=== PATIENT | male | born 1945 ===

== ENCOUNTER 2022-09-20 19:29 | Observation (INO) | payer MEDICARE, OTHER ==
[~2022-09-20] VITALS: Ht 180.3 cm; Wt 65.9 kg
[2022-09-20 20:06] LABS: BASOPHILS PERCENT AUTO 1 % (0-2); EOSINOPHILS ABSOLUTE AUTO 0.13 K/mm3 (0.00-0.68); EOSINOPHILS PERCENT AUTO 1 % (0-6); Hemoglobin 15.3 g/dL (13.5-17.5); IMMATURE GRAN ABSOLUTE AUTO 0.06 K/mm3 (0.00-0.10); IMMATURE GRAN PERCENT AUTO 1 % (0-1); LYMPHOCYTES ABSOLUTE AUTO 1.44 K/mm3 (0.84-5.20); LYMPHOCYTES PERCENT AUTO 12 % (21-46); MONOCYTES ABSOLUTE AUTO 0.45 K/mm3 (0.16-1.47); MONOCYTES PERCENT AUTO 4 % (4-13); Mean Corpuscular HGB 29.1 pg (26.0-34.0); Mean Corpuscular HGB Conc 33.3 g/dL (31.5-36.5); Mean Corpuscular Volume 88 fL (80-100); Mean Platelet Volume 10.3 fL (9.1-12.4); NEUTROPHILS PERCENT AUTO 83 % (41-73); Platelet Count 348 K/mm3 (150-400); RDW Standard Deviation 41.6 fL (35.1-46.3); Red Blood Cell Count 5.26 M/mm3 (4.30-5.90); White Blood Cell Count 12.48 K/mm3 (4.00-11.30)
[2022-09-20 20:29] LABS: Albumin, Blood 3.2 g/dL (3.4-5.0); Albumin/Globulin Ratio 0.7 (0.8-1.8); Bilirubin, Total 0.6 mg/dL (0.1-1.0); Bun/Creatinine Ratio 16.7 (12.0-20.0); Calcium, Blood 9.5 mg/dL (8.5-10.1); Creatinine, Blood 0.78 mg/dL (0.60-1.20); Globulin, Blood 4.5 g/dL (2.2-4.0); Potassium, Blood 3.9 mmol/L (3.5-5.5); Total Protein, Blood 7.7 g/dL (6.4-8.2)
[2022-09-20 21:15] LABS: International Normalized Ratio 1.11; Prothrombin Time Results 11.6 Sec (9.7-11.5)
[2022-09-20 22:55] VITALS: BP 145/84
[2022-09-20 23:00] VITALS: BP 142/85
[2022-09-20 23:05] VITALS: BP 133/74
[2022-09-20 23:10] VITALS: BP 125/63
[2022-09-20 23:20] VITALS: BP 144/85
[2022-09-20 23:38] VITALS: BP 140/90
[2022-09-21 00:08] VITALS: BP 133/89
[2022-09-21 00:44] VITALS: BP 123/78
--- NOTE | 2022-09-21 01:44 | NUR ---
PT ARRIVED TO THE FLOOR AT APPROX 0010, A/O TO SELF ONLY AT THIS TIME. INCISION TO L GROIN W/ DERMABOND. SKIN ON BILATERAL LEGS MOTTLED BUT WARM. FULL SENSATION. BOWEL TONES ACTIVE. VITAL SIGNS TAKE. PT UP AND WALKED TO THE BATHROOM W/ ONE ASSIST AND GB. VOIDED AT THIS TIME.
[2022-09-21 01:48] VITALS: BP 137/88
[2022-09-21 02:57] VITALS: BP 110/79
--- NOTE | 2022-09-21 05:21 | NUR ---
SHIFT SUMMARY SINCE ARRIVAL PT HAS BECOME ORIENTED X4. NO PAIN REPORTED. 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 VOIDING WELL.
[2022-09-21 07:45] VITALS: BP 125/91
[2022-09-21] MEDS ORDERED: Norco 5-325 Ta1 EACH PO (10:31)
--- NOTE | 2022-09-21 11:03 | NUR ---
DISCHARGE: PACKET PRINTED AND PT EDUCATED. IV DC'D WNL. PER DR. CENTENO,E-SCRIPT SENT TO PHARMACY. PT LEFT UNIT VIA WHEELCHAIR AT 1115
== END 2022-09-21 11:47 | disposition home or self-care (01) ==
LOC: ER 19:29 → SURS 20:31
PROVIDERS: Emergency Medicine; ADMIT Surgery
PROC: 0YU60JZ Supplement Left Inguinal Region with Synthetic Substitute, Open Approach (ICD-10-PCS; principal; 2022-09-20 20:30)
DX: K40.30 Unilateral inguinal hernia, with obstruction, without gangrene, not specified as recurrent (principal); Z72.0 Tobacco use
CPT/HCPCS: 74176; 80053; 85025; 85610; 85730; 93005; 93010; 94762; 96374; 96375; 99285-25; A9270; C1781; J0690; J1100; J1170; J2370; J2405; J2704; J3010; J7120

== ENCOUNTER 2024-03-13 10:53 | Day surgery (SDC) | payer MEDICARE ==
[~2024-03-13] VITALS: Ht 180.3 cm; Wt 68.7 kg
[~2024-03-13 10:53] MED LIST: Balanced Salt Epinephrine Irrigation Solution 500 mL IR SCH; Lidocaine HCl/Pf 1% 5 ML VIAL XX SCH; Moxifloxacin HCL 0.5 MG/0.1 ML 0.4MLSYR LEFTEYE SCH; Norco 5-325 Ta1 EACH PO; PHENYLEPHRINE\\TROPICAMIDE\\TETRACAINE OPHTHALMIC DILATING SOLN LEFTEYE PRN; Povidone-Iodine 450 DROP/30 ML Solution LEFTEYE SCH; Povidone-Iodine 450 DROP/30 ML Solution ONE; Tetracaine HCl/Pf 0.5% Opth Soln 4 ml ONE
[2024-03-13] MEDS ORDERED: LOSARTAN POTASS25 M2 (12:05)
[2024-03-13] MEDS ORDERED: Midazolam HCl 1MG / ML 2ML Vial ONE (12:24)
[2024-03-13 12:59] VITALS: BP 138/75
== END 2024-03-13 13:17 | disposition home or self-care (01) ==
LOC: ORSCSDS 10:53
PROVIDERS: Student in an Organized Health Care Education/Training Program
PROC: 08RK3JZ Replacement of Left Lens with Synthetic Substitute, Percutaneous Approach (ICD-10-PCS; principal; 2024-03-13 12:30)
DX: H25.812 Combined forms of age-related cataract, left eye (principal); I10 Essential (primary) hypertension; Z86.73 Personal history of transient ischemic attack (TIA), and cerebral infarction without residual deficits; Z79.899 Other long term (current) drug therapy; Z87.891 Personal history of nicotine dependence
CPT/HCPCS: J2250; V2632

== ENCOUNTER 2024-12-12 19:12 | Emergency (ER) | payer MEDICARE ==
[~2024-12-12] VITALS: Ht 180.3 cm; Wt 68.0 kg
[~2024-12-12 19:12] MED LIST changes: -Balanced Salt Epinephrine Irrigation Solution 500 mL IR SCH; +LOSARTAN POTASS25 M2; -Lidocaine HCl/Pf 1% 5 ML VIAL XX SCH; -Moxifloxacin HCL 0.5 MG/0.1 ML 0.4MLSYR LEFTEYE SCH; -PHENYLEPHRINE\\TROPICAMIDE\\TETRACAINE OPHTHALMIC DILATING SOLN LEFTEYE PRN; -Povidone-Iodine 450 DROP/30 ML Solution LEFTEYE SCH; -Povidone-Iodine 450 DROP/30 ML Solution ONE; -Tetracaine HCl/Pf 0.5% Opth Soln 4 ml ONE
[2024-12-12 19:46] LABS: BASOPHILS ABSOLUTE AUTO 0.04 K/mm3 (0.00-0.23); BASOPHILS PERCENT AUTO 1 % (0-2); EOSINOPHILS ABSOLUTE AUTO 0.01 K/mm3 (0.00-0.68); EOSINOPHILS PERCENT AUTO 0 % (0-6); Hematocrit 41.7 % (37.0-53.0); Hemoglobin 14.1 g/dL (13.5-17.5); IMMATURE GRAN ABSOLUTE AUTO 0.02 K/mm3 (0.00-0.10); IMMATURE GRAN PERCENT AUTO 0 % (0-1); LYMPHOCYTES ABSOLUTE AUTO 0.50 K/mm3 (0.84-5.20); LYMPHOCYTES PERCENT AUTO 7 % (21-46); MONOCYTES ABSOLUTE AUTO 0.41 K/mm3 (0.16-1.47); MONOCYTES PERCENT AUTO 6 % (4-13); Mean Corpuscular HGB Conc 33.8 g/dL (31.5-36.5); Mean Corpuscular Volume 94 fL (80-100); NEUTROPHILS ABSOLUTE AUTO 6.49 K/mm3 (1.96-9.15); NEUTROPHILS PERCENT AUTO 87 % (41-73); NRBC ABSOLUTE 0.00 K/mm3 (0.00-0.02); NRBC Auto 0.0 /100 WBC (0.0-0.2); Platelet Count 179 K/mm3 (150-400); RDW Coefficient Variation 12.5 % (11.7-14.2); RDW Standard Deviation 43.4 fL (35.1-46.3)
[2024-12-12 20:15] LABS: Alanine Aminotransfer (ALT/SGP 25.0 U/L (12-78); Albumin, Blood 4.2 g/dL (3.4-5.0); Albumin/Globulin Ratio 1.1 (0.8-1.8); Anion Gap 10.0 mmol/L (3-11); Aspartate Aminotrans (AST/SGOT 18.0 U/L (12-37); Bilirubin, Total 1.0 mg/dL (0.1-1.0); Blood Urea Nitrogen 11.0 mg/dL (8-24); CO2, Blood 24.0 mmol/L (21-32); Calcium, Blood 9.7 mg/dL (8.5-10.1); Chloride, Blood 105.0 mmol/L (98-108); Creatinine, Blood 0.84 mg/dL (0.60-1.20); Globulin, Blood 3.7 g/dL (2.2-4.0); Glucose, Blood 94.0 mg/dL (70-99); Potassium, Blood 3.7 mmol/L (3.5-5.5); Sodium, Blood 135.0 mmol/L (136-145); Total Protein, Blood 7.9 g/dL (6.4-8.2)
[2024-12-12 21:29] LABS: Source, Urine Clean Catch
[2024-12-12 21:34] LABS: Bilirubin, Urine Neg (Neg); Color, Urine Yellow (P-Yellow); Glucose Qualitative, Urine Neg (Neg); Ketones, Urine 2+ (Neg); Leukocyte Esterase, Urine Neg (Neg); Protein, Urine 2+ (Neg); Specific Gravity, Urine 1.020 (1.003-1.022); Urobilinogen, Urine NORM (Normal)
[2024-12-12 21:56] LABS: Red Blood Cells, Urine 0-2 /hpf (0-2); White Blood Cells, Urine 0-2 /hpf (0-5)
[2024-12-13 00:15] VITALS: BP 149/78
== END 2024-12-13 00:30 | disposition home or self-care (01) ==
LOC: ER 19:12
PROVIDERS: Student in an Organized Health Care Education/Training Program
DX: R41.0 Disorientation, unspecified (principal); F17.200 Nicotine dependence, unspecified, uncomplicated; Z79.899 Other long term (current) drug therapy
CPT/HCPCS: 71046; 80053; 81001; 84484; 85025; 93005; 93010; 99285-25